=== PATIENT | female | born 1970 | race Caucasian/White ===

== ENCOUNTER 2020-03-10 15:55 | Outpatient (CLI) | payer OTHER, SELFPAY ==
--- NOTE | ~2020-03-10 | MM_ITS ---
EXAMINATION: MM screening liz BI w tam HISTORY: Screening mammogram TECHNIQUE: Craniocaudal and mediolateral oblique 3-D tomosynthesis images were obtained and synthetic 2-D images were generated. CAD analysis was submitted and interpreted. COMPARISON: 12/27/2018, 11/03/2016, 10/03/2013 bilateral digital screening mammogram examinations BREAST PARENCHYMAL COMPOSITION: The breasts are heterogeneously dense, which may obscure small masses . FINDINGS: 9 mm circumscribed mass is suggested posteriorly in the upper left breast on MLO view this appears stable since 12/27/2018 as well as 08/31/2011. There is no evidence of suspicious mass, calcification, or architectural distortion to suggest malign nicole in either breast. There has been no suspicious interval change. IMPRESSION: 1. No mammographic evidence of malignancy 2. Routine mammographic screening follow-up is recommended. BI-RADS Category 2: Benign finding(s). Reviewed, dictated and finalized at location A. FACTURING SALES REPRESENTATIVE
== END 2020-03-10 15:56 | disposition home or self-care (01) ==
LOC: ANHIMG 15:59
PROVIDERS: Visit Provider Obstetrics & Gynecology
DX: Z12.31 Encounter for screening mammogram for malignant neoplasm of breast (principal)
CPT/HCPCS: 77063; 77067

== ENCOUNTER 2021-09-12 12:26 | Emergency (ER) | payer BC, SELFPAY ==
[2021-09-12 12:40] VITALS: BP 131/84; PULSE 95; RESP 16; TEMP 36.7; O2SAT 100
--- NOTE | 2021-09-12 13:09 | ED.SKABFB ---
HPI - Skin/Abscess/Foreign Bdy General Chief complaint: Skin/Abscess/Foreign Body Stated complaint: swelling and inflammation in face Time Seen by Provider: 09/12/21 12:56 Source: patient Mode of arrival: ambulatory Limitations: no limitations History of Present Illness HPI narrative: Patient presents today complaining of swelling to the bilateral lower eyelids that started yesterday and states it has been worsening since onset. Patient was diagnosed 4 days ago with shingles on her forehead by her PCP and was started on valacyclovir and gabapentin. She is also been taking Tylenol for pain. She denies shortness of breath, difficulty swallowing, swelling in her mouth or tongue. Denies itching of the swelling of her eyelids. Related Data Home Medications Medication Instructions Recorded Confirmed ascorbate calcium (vitamin C) 500 500 mg PO DAILY 09/08/21 mg tablet multivitamin (Daily Multi-Vitamin) 1 tablet PO DAILY 09/08/21 tumeric 100 mg-miguel 150 mg-olive cap PO .QD 09/08/21 50 mg-oreg 150 mg-caprylate capsule Allergies Allergy/AdvReac Type Severity Reaction Status Date / Time adhesive Allergy Unknown BLISTERY Verified 09/12/21 12:47 RASH lanolin Allergy Unknown RASH Verified 09/12/21 12:47 latex Allergy Unknown Unknown Verified 09/12/21 12:47 Review of Systems Review of Systems: CONSTITUTIONAL: Denies body aches, fever, chills, or sweats. EYES: Denies visual changes, redness, or discharge.+ Swelling of the bilateral lower eyelids ENT: Denies rhinorrhea, congestion, sore throat, or otalgia. CARDIOVASCULAR: Denies chest pain, palpitations, or edema. RESPIRATORY: Denies cough or dyspnea. GASTROINTESTINAL: Denies abdominal pain, nausea, vomiting, or diarrhea. GENITOURINARY: Denies dysuria or hematuria. SKIN: Denies rash, itching, or wounds. MUSCULOSKELETAL: Denies back pain, joint pain, or myalgia. NEUROLOGIC: Denies headache, numbness, tingling, or weakness. PSYCH: Denies depression or anxiety. [facility] Family History Family History Father Hypertension Social History Social History Smoking status: Former smoker Second hand tobacco smoke exposure: No Smoking end date: 04/17/07 Alcohol intake: current Comments At time of signature, I have reviewed and agree with nursing past medical, surgical, social and family history unless otherwise noted. Please see nursing chart for further information. There is no relevant family history pertinent to the presenting complaint Exam Narrative: GENERAL: Well-appearing, well-nourished, and in no acute distress. HEAD: Normocephalic, atraumatic. EYES: EOMI. PERRL. No redness or drainage. Conjunctivae normal. Mild swelling of the bilateral lower eyelids that extends medially and downward midly. No pain, induration, or erythema noted. ENT: Mucous membranes pink and moist. Nares clear. No rhinorrhea. No swelling around the mouth, lips, tongue. NECK: Normal AROM. Supple. Right preauricular, postauricular, anterior and posterior cervical chain lymphadenopathy. CHEST: No respiratory distress. EXTREMITIES: Normal range of motion. No edema. SKIN: Warm, dry. Capillary refill normal. Normal skin turgor. Lesions to the right midline forehead without sign of bacterial infection NEURO: No focal deficits. Alert and oriented x3. Gait steady. PSYCH: Normal affect. No signs of depression or anxiety. Course Course Emergency Course: We will treat patient with some steroids and instruct her to take some Benadryl for possible allergic reaction, possibly to valacyclovir or gabapentin, but no way to confirm. She is nontoxic-appearing and is able to treat her symptoms at home. Level of Care: Express Care Visit Vital Signs Vital signs: Vital Signs Temperature 98.0 F 09/12/21 12:40 Pulse Rate 95 09/12/21 12:40 Respiratory Rate 16 09/12/21 12:40 Bloo
== END 2021-09-12 13:22 | disposition home or self-care (01) ==
PROVIDERS: Emergency Provider Nurse Practitioner; PCP Family Medicine
DX: R22.0 Localized swelling, mass and lump, head (principal); Z87.891 Personal history of nicotine dependence
CPT/HCPCS: 99213; G0463

== ENCOUNTER 2021-10-05 08:00 | Outpatient (CLI) | payer BC, SELFPAY ==
--- NOTE | ~2021-10-05 | MM_ITS ---
EXAMINATION: MM screening liz BI w tam HISTORY: Screening mammogram TECHNIQUE: Craniocaudal and mediolateral oblique 3-D tomosynthesis images were obtained and synthetic 2-D images were generated. CAD analysis was submitted and interpreted. COMPARISON: 03/06/2020, 12/27/2018, 11/03/2016 bilateral screening mammogram examinations BREAST PARENCHYMAL COMPOSITION: The breasts are heterogeneously dense, which may obscure small masses . FINDINGS: Stable approximately 1 cm circumscribed opacity is noted in the posterior upper left breast on MLO view There is no evidence of suspicious mass, calcification, or architectural distortion to s uggest malignancy in either breast. There has been no suspicious interval change. IMPRESSION: 1. No mammographic evidence of malignancy. 2. Recommend routine screening mammography in one year. BI-RADS Category 2: Benign finding(s). Reviewed, dictated and finalized at location A.
== END 2021-10-05 08:01 | disposition home or self-care (01) ==
PROVIDERS: PCP Family Medicine; Visit Provider Obstetrics & Gynecology
DX: Z12.31 Encounter for screening mammogram for malignant neoplasm of breast (principal)
CPT/HCPCS: 77063; 77067

== ENCOUNTER 2021-11-15 01:36 | Day surgery (SDC) | payer BC, SELFPAY ==
[2021-10-27 14:01] VITALS: BMI 23.8
--- NOTE | 2021-11-12 11:36 | SUR.PREOP ---
Spoke with patient and patient is taking Sutab for their prep.
[2021-11-15 07:19] VITALS: BMI 23.8
[2021-11-15 07:22] VITALS: BP 118/83; PULSE 74; RESP 16; TEMP 36.6; O2SAT 100
[2021-11-15] MEDS: LACTATED RINGERS 1,000 ML 150 ML IV CONT (07:28)
--- NOTE | 2021-11-15 08:15 | P.PNAN_ITS ---
Anes - Initial Pre Proc Eval Procedure: Operation Date: 11/15/21 08:30 Proposed Procedures p Screening Colonoscopy - Cody Bell MD Date/Time: 11/15/21 08:15 Surgeon: Cody Bell MD Pre Op Diagnosis: neoplasm screening Patient Data Age: 51 Gender: F Height: 1.65 m Weight: 64.8 kg Last Vital Signs Temp 97.8 F 11/15/21 07:22 Pulse 74 11/15/21 07:22 Resp 16 11/15/21 07:22 BP 118/83 11/15/21 07:22 Pulse Ox 100 11/15/21 07:22 O2 Del Method Room Air 11/15/21 07:22 Allergies Allergy/AdvReac Type Severity Reaction Status Date / Time adhesive Allergy Unknown BLISTERY Verified 10/27/21 13:59 RASH lanolin Allergy Unknown RASH Verified 10/27/21 13:59 latex Allergy Unknown Unknown Verified 10/27/21 13:59 gabapentin Allergy Swelling Verified 10/27/21 14:01 of the Eye valacyclovir Allergy Swelling Verified 10/27/21 14:01 of the Eye Home Medications Medication Instructions Recorded Confirmed Type multivitamin (Daily Multi-Vitamin 1 tablet PO DAILY 09/08/21 10/27/21 History tablet) tumeric 100 mg-miguel 150 mg-olive 1 cap PO .QD 09/08/21 10/27/21 History 50 mg-oreg 150 mg-caprylate capsule sodium sul 1.479 gram-potas ch See Rx Instructions PO PER PKG DIR 09/14/21 Rx 0.188 gram-magnes sul 0.225 gram #24 tabs tablet (Sutab) Patient hx anesthesia problems: none Family hx anesthesia problems: none Results Review: All pre-operative results and documents have been reviewed as part of the pre- operative evaluation. PMFSH Family History Family History Father Hypertension Social History Social History Smoking status: Former smoker Tobacco type: cigarettes Second hand tobacco smoke exposure: No Smoking end date: 04/17/07 Alcohol intake: current Drinks per week: 2 Substance use type: does not use Living arrangements: with family Spiritual care concerns: No Anes - Eval Final PreProcedure Day of Procedure 11/15/21 08:15 Patient weight: normal Heart: regular rate and rhythm Lungs: clear to auscultation Airway: Mallampati scale class II Neurological: alert and oriented Last oral intake: >/= 8 hours ASA classification: II Emergent: no Anesthetic plan: proceed Anesthesia type and monitoring: general GIVS and standard monitoring Results Review: All pre-operative results and documents have been reviewed as part of the pre- operative evaluation. Informed Consent: The patient's anesthetic plan and its attendant risks and benefits were discussed with the patient/family/POA. Questions were solicited and answers provided to the satisfaction of the patient/family/POA.
--- NOTE | 2021-11-15 08:24 | PM.HPGS ---
History of Present Illness History of Present Illness Consent: Risks, benefits, and alternatives have been discussed and questions answered. Patient agrees to proceed with procedure. Chief complaint: neoplasm screening Narrative: Ailyn Umanzor is a 51 year old female here for first screening colonoscopy Review of Systems Constitutional: Constitutional: Denies headache(s) and Denies weakness Eyes: Eyes: Denies blurry vision ENT: Reports Normal hearing present, Denies headache(s) and Denies neck pain Cardiovascular: Cardiovascular: Denies chest pain and Denies dyspnea Respiratory: Respiratory: Denies dyspnea Gastrointestinal: Gastrointestinal: Reports no additional gastrointestinal complaints Genitourinary: Genitourinary: Denies dysuria Musculoskeletal: Musculoskeletal: Denies neck pain Integumentary/Breasts: Skin/Breast: Denies dry skin Neurologic: Reports Normal hearing present, Denies headache(s) and Denies weakness Psychiatric: Psychiatric: Denies anxiety Endocrine: Endocrine: Denies change in body appearance Hematologic/Lymphatic: Hematologic/Lymphatic: Denies easy bleeding Allergic/Immunologic: Allergic/Immunologic: Denies urticaria [facility] Past Medical History Medical History (Updated 11/15/21 @ 08:24 by Cody Bell MD) Colon cancer screening Family History Family History Father Hypertension Social History Social History Smoking status: Former smoker Tobacco type: cigarettes Second hand tobacco smoke exposure: No Smoking end date: 04/17/07 Alcohol intake: current Drinks per week: 2 Substance use type: does not use Living arrangements: with family Spiritual care concerns: No Meds Home Medications and Allergies Home Medications Medication Instructions Recorded Confirmed Type multivitamin (Daily Multi-Vitamin 1 tablet PO DAILY 09/08/21 10/27/21 History tablet) tumeric 100 mg-miguel 150 mg-olive 1 cap PO .QD 09/08/21 10/27/21 History 50 mg-oreg 150 mg-caprylate capsule sodium sul 1.479 gram-potas ch See Rx Instructions PO PER PKG DIR 09/14/21 Rx 0.188 gram-magnes sul 0.225 gram #24 tabs tablet (Sutab) Allergies Allergy/AdvReac Type Severity Reaction Status Date / Time adhesive Allergy Unknown BLISTERY Verified 10/27/21 13:59 RASH lanolin Allergy Unknown RASH Verified 10/27/21 13:59 latex Allergy Unknown Unknown Verified 10/27/21 13:59 gabapentin Allergy Swelling Verified 10/27/21 14:01 of the Eye valacyclovir Allergy Swelling Verified 10/27/21 14:01 of the Eye Vital Signs Vital Signs - 24 hr 11/15/21 07:22 Temperature 97.8 F Pulse Rate 74 Respiratory Rate 16 Blood Pressure 118/83 Pulse Oximetry 100 Oxygen Delivery Room Air Exam Const: General: comfortable and no acute distress HENMT: General nose exam: Normal nares present Eyes: General: appearance normal, both eyes and all related structures Neck: Neck: no JVD Resp: Auscultation: clear to auscultation bilaterally Cardio: Rate: regular rate Rhythm: regular rhythm GI: Inspection: non-distended GI Palp: Yes Soft to palpation Skin: General skin exam: normal color Neuro: General: gait normal Speech: normal speech Extrem: General: normal to inspection Psych: Mental Status: mental status grossly normal Assessment and Plan Assessment and plan (1) Colon cancer screening: Code(s): Z12.11 - Encounter for screening for malignant neoplasm of colon Status: Acute Assessment and Plan: colonoscopy
[2021-11-15 08:40] VITALS: BP 104/65; PULSE 82; RESP 15; O2SAT 98
[2021-11-15 08:50] VITALS: BP 115/69; PULSE 79; RESP 18; O2SAT 100
[2021-11-15 08:57] VITALS: BP 121/82; PULSE 73; RESP 21; O2SAT 100
== END 2021-11-15 09:19 | disposition home or self-care (01) ==
PROVIDERS: PCP Family Medicine; Visit Provider Internal Medicine Gastroenterology
PROC: 0DJD8ZZ Inspection of Lower Intestinal Tract, Via Natural or Artificial Opening Endoscopic (ICD-10-PCS; CPT 45378; principal; 2021-11-15 08:30)
DX: Z12.11 Encounter for screening for malignant neoplasm of colon (principal); K64.8 Other hemorrhoids; Z87.891 Personal history of nicotine dependence
CPT/HCPCS: 45378; J2704; J7120

== ENCOUNTER 2023-03-24 10:38 | Outpatient (CLI) | payer BC, SELFPAY ==
--- NOTE | ~2023-03-24 | MMUS_ITS ---
EXAMINATION: MM diagnostic liz BI w tam, US breast BI limited HISTORY: Left breast and bilateral axillary swelling TECHNIQUE: Craniocaudal, mediolateral, and mediolateral oblique 3-D tomosynthesis images of the trungas ts were performed and synthetic 2-D images were generated. CAD analysis was submitted and interpreted . High resolution limited bilateral breast ultrasound was performed. COMPARISON: 10/05/2021, 03/10/2020, 12/27/2018 BREAST PARENCHYMAL COMPOSITION: There are scattered areas of fibroglandular density. FINDINGS: MAMMOGRAPHIC FINDINGS: No suspicious mass, calcification, or architectural distortion are identified in either breast to sug gest malignancy. There has been no suspicious interval change. There is partially imaged marked bilat eral axillary lymphadenopathy. ULTRASOUND: Bilateral axillary ultrasound demonstrates multiple pathologically enlarged lymph nodes of both axill ae. In addition, there is an enlarged lymph node at the 9:00 location in the far outer right breast. Subpectoral lymphadenopathy is noted on the left. IMPRESSION: 1. No mammographic evidence of malignancy in the breasts. Bridging screening mammography is recommend ed. 2. Marked bilateral axillary lymphadenopathy as well as subpectoral lymphadenopathy and left. Finding s could reflect lymphoma or other malignancy. Ultrasound guided lymph node biopsy is recommended. BI-RADS Category 2: Benign finding(s). Reviewed, dictated and finalized at location F. LE DRIVER IMPRESSION: 1. No mammographic evidence of malignancy in the breasts. Bridging screening ma mmography is recommended. 2. Marked bilateral axillary lymphadenopathy as well as subpectoral lymphadenop athy and left. Findings could reflect lymphoma or other malignancy. Ultrasound guided lymph node biopsy is recommended. BI-RADS Category 2: Benign finding(s).
== END 2023-03-24 10:39 | disposition home or self-care (01) ==
LOC: ANHIMG 10:39
PROVIDERS: PCP Family Medicine; Visit Provider Obstetrics & Gynecology
DX: N63.0 Unspecified lump in unspecified breast (principal)
CPT/HCPCS: 76642; 77062; 77066; G0279

== ENCOUNTER 2023-04-21 09:51 | Outpatient (CLI) | payer OTHER, SELFPAY ==
--- NOTE | ~2023-04-21 | US_ITS ---
EXAMINATION: US biopsy lymph node DATE: 04/21/2023 11:48 INDICATION: Localized enlarged left axillary lymph nodes TECHNIQUE: The procedure including the risks and benefits was discussed with the patient. Risks discu ssed included bleeding and infection. The patient understood the risks and agreed to proceed. The sk in overlying the left axilla was prepped and draped in usual sterile fashion. Anesthetic was adminis tered with 1% lidocaine subcutaneously. An 14 gauge core biopsy needle was advanced under continuous ultrasound observation to the lesion of interest. 6 core biopsy specimens were obtained, 4 placed i n RPMI media and 2 in formalin. The needle was removed and the entry site was cleaned and dressed. Post procedure ultrasound demonstrated no hemorrhage. FINDINGS: Ultrasound images demonstrate multiple enlarged left axillary lymph nodes. Subsequent image s demonstrate the biopsy needle advanced into the largest 5.7 x 1.4 x 1.9 cm left axillary lymph node . IMPRESSION: 1. Successful Ultrasound-guided biopsy of an enlarged 5.7 x 1.4 x 1.9 cm left axillary lymph node. Reviewed, dictated and finalized at location A. [place] STORE CLERK IMPRESSION: 1. Successful Ultrasound-guided biopsy of an enlarged 5.7 x 1.4 x 1.9 cm left a xillary lymph node.
== END 2023-04-21 09:52 | disposition home or self-care (01) ==
PROVIDERS: PCP Family Medicine; Visit Provider Obstetrics & Gynecology
DX: C91.10 Chronic lymphocytic leukemia of B-cell type not having achieved remission (principal)
CPT/HCPCS: 38505; 76942; 88305; 88341; 88342

== ENCOUNTER 2023-05-01 09:27 | Outpatient (CLI) | payer OTHER, SELFPAY ==
[2023-05-01 09:49] LABS: Basophils Absolute Auto 0.1 K/mm3 (0.0-0.1); Basophils Percent Auto 0.6 % (0.2-1.2); Eosinophils Absolute Auto 0.2 K/mm3 (0-0.3); Eosinophils Percent Auto 1.1 % (0-4.4); Hematocrit 40.6 % (37.0-47.0); Hemoglobin 13.4 g/dL (12.0-15.0); Immature Granulocyte Absolute 0.07 K/mm3 (0.00-0.031); Immature Granulocyte Percent A 0.4 % (0-0.5); Lymphocytes Absolute Auto 12.09 K/mm3 (0.9-3.2); Lymphocytes Percent Auto 70.2 % (18.3-44.2); Mean Corpuscular Hemoglobin 31.8 pg (26-34); Mean Corpuscular Volume 96.2 fl (80-100); Mean Platelet Volume 10.3 fl (7.4-10.4); Monocytes Absolute Auto 0.7 K/mm3 (0.1-0.6); Monocytes Percent Auto 4.1 % (2.6-8.5); Neutrophils Absolute Auto 4.1 K/mm3 (1.3-6.7); Neutrophils Percent Auto 23.6 % (45.5-73.1); Platelet Count Result 295 k/mm3 (150-375); Red Blood Count 4.22 M/mm3 (4.2-5.4); Red Cell Distribution Width 12.3 % (11.5-14.5); White Blood Count 17.2 K/mm3 (4.5-10.0)
[2023-05-01 09:55] LABS: Platelet Estimate Adequate (Adequate); Schistocytes None Seen (NORMAL)
[2023-05-01 09:56] LABS: Atypical Lymphocytes Present
[2023-05-01 11:01] LABS: Alanine Aminotransferase 19 U/L (6-35); Albumin Level 4.3 g/dL (3.5-5.1); Alkaline Phosphatase 88 U/L (38-126); Anion Gap 6 mmol/L (8-16); Aspartate Amino Transferase 27 U/L (14-36); Bilirubin,Total 0.4 mg/dL (0.2-1.3); Blood Urea Nitrogen 18 mg/dL (7-17); Calcium 9.2 mg/dL (8.4-10.2); Carbon Dioxide 30 mmol/L (22-30); Chloride 103 mmol/L (98-107); Estimated Glomerular Filt Rate > 60; Glucose 93 mg/dL (65-110); Lactate Dehydrogenase 237 U/L (120-246); Potassium 4.4 mmol/L (3.4-5.0); Sodium 139 mmol/L (137-145)
== END 2023-05-01 09:28 | disposition home or self-care (01) ==
LOC: ANHLAB 09:28
PROVIDERS: PCP Family Medicine; Visit Provider Internal Medicine Hematology & Oncology
DX: C91.10 Chronic lymphocytic leukemia of B-cell type not having achieved remission (principal)
CPT/HCPCS: 36415; 80053; 83615; 85025; 88184; 88365

== ENCOUNTER 2023-05-09 08:13 | Outpatient (CLI) | payer OTHER, SELFPAY ==
--- NOTE | ~2023-05-09 | CT_ITS ---
EXAMINATION: CT soft tiss nk chst ab pel w DATE: 05/09/2023 08:50 INDICATION: Lymphadenopathy. Chronic lymphocytic leukemia. TECHNIQUE: Computed tomography (CT) of the neck, chest, abdomen, and pelvis was performed without int ravenous contrast. Automated exposure control and iterative reconstruction technique were employed. T he dose-length product was 1182.24 mGy-cm. COMPARISON: None FINDINGS: NECK CT: There are mucous retention cysts in the maxillary sinuses. There is an increased number of normal-siz ed lymph nodes involving internal jugular, spinal accessory, and submandibular chains. There is a 1.7 x 1.1 cm left supraclavicular lymph node. There are nodules in the thyroid measuring up to 5 mm, lik jagdeep not clinically significant. There is mild cervical spondylosis. CHEST CT: There is mild emphysema. There is mild atelectasis bilaterally. There is mild scarring at the lung ap ices. There is no pleural effusion. There is bilateral axillary and subpectoral lymphadenopathy. For example, a left subpectoral node measures 2.4 x 2.0 cm . The heart size is normal. No pericardial eff usion. There is moderate thoracic spondylosis. ABDOMEN/PELVIS CT: There are cysts in the liver measuring up to 5 mm. The spleen, pancreas, adrenal glands, gallbladder, and kidneys are normal. There are no dilated loops of bowel. The appendix is normal. There is mesent elbert, aortocaval, left para-aortic, bilateral common iliac, and bilateral external iliac lymphadenopa thy. For example, a right external iliac node measures 2.9 x 1.7 cm. There is no ascites. There is mi ld lumbar spondylosis. IMPRESSION: 1. Lymphadenopathy in the neck, chest, abdomen, and pelvis, consistent with small lymphocytic lymphom a/chronic lymphocytic leukemia. Reviewed, dictated and finalized at location E. L MAKING SUPERVISOR IMPRESSION: 1. Lymphadenopathy in the neck, chest, abdomen, and pelvis, consistent with sma ll lymphocytic lymphoma/chronic lymphocytic leukemia.
== END 2023-05-09 08:14 | disposition home or self-care (01) ==
PROVIDERS: PCP Family Medicine; Visit Provider Internal Medicine Hematology & Oncology
DX: C91.10 Chronic lymphocytic leukemia of B-cell type not having achieved remission (principal)
CPT/HCPCS: 70491; 71260; 74177; Q9967

== ENCOUNTER 2023-06-13 07:40 | Outpatient (CLI) | payer OTHER, SELFPAY ==
--- NOTE | ~2023-06-13 | CT_ITS ---
EXAMINATION: CT chest abdomen pelvis w con DATE: 06/13/2023 08:11 INDICATION: Chronic lymphocytic leukemia, left-sided abdominal pain TECHNIQUE: Transaxial computed tomographic images of the chest, abdomen, and pelvis were obtained aft er the administration of 100 cc of Omnipaque 350 intravenous contrast. The dose-length product (DLP) was 442.47 mGy-cm. Automated exposure control and iterative reconstruction technique were employed. COMPARISON: 05/09/2023 FINDINGS: CHEST CT: There has been interval worsening of bilateral subpectoral and axillary lymphadenopathy. For instance , many subpectoral lymph nodes which were previously subcentimeter in short axis now measure greater than 1 cm. There is also enlargement of an intramammary lymph node in the left breast. The heart size is normal. There is mild emphysema. Mild scarring is noted in the lung apices. No pleural effusion o r pneumothorax. There is mild dependent atelectasis. ABDOMEN/PELVIS CT: There are multiple cysts of the liver which measure up to 5 mm. The spleen, pancreas, gallbladder, an d adrenal glands are normal. The kidneys are unremarkable. There is interval worsening of retroperito jewell, mesenteric, bilateral common iliac, and bilateral external iliac lymphadenopathy. For instance a 1.7 cm lymph node near the aortic bifurcation previously measured 1.4 cm. No free intraperitoneal g as or evidence of bowel obstruction. IMPRESSION: 1. Interval worsening of lymphadenopathy of the chest, abdomen, and pelvis, consistent with history o f chronic lymphocytic leukemia. Reviewed, dictated and finalized at location L. ELING REPRESENTATIVE IMPRESSION: 1. Interval worsening of lymphadenopathy of the chest, abdomen, and pelvis, con sistent with history of chronic lymphocytic leukemia.
== END 2023-06-13 07:41 | disposition home or self-care (01) ==
PROVIDERS: PCP Family Medicine; Visit Provider Internal Medicine Hematology & Oncology
DX: C91.10 Chronic lymphocytic leukemia of B-cell type not having achieved remission (principal)
CPT/HCPCS: 71260; 74177; Q9967

== ENCOUNTER 2023-06-14 08:43 | Outpatient (CLI) | payer OTHER, SELFPAY ==
[2023-06-14 08:54] LABS: Basophils Absolute Auto 0.1 K/mm3 (0.0-0.1); Basophils Percent Auto 0.4 % (0.2-1.2); Eosinophils Absolute Auto 0.1 K/mm3 (0-0.3); Eosinophils Percent Auto 0.8 % (0-4.4); Hemoglobin 12.9 g/dL (12.0-15.0); Immature Granulocyte Absolute 0.04 K/mm3 (0.00-0.031); Immature Granulocyte Percent A 0.3 % (0-0.5); Lymphocytes Absolute Auto 10.21 K/mm3 (0.9-3.2); Lymphocytes Percent Auto 70.4 % (18.3-44.2); Mean Corpuscular HGB Conc 32.3 g/dl (32-36); Mean Corpuscular Hemoglobin 31.5 pg (26-34); Mean Corpuscular Volume 97.8 fl (80-100); Mean Platelet Volume 9.9 fl (7.4-10.4); Monocytes Absolute Auto 1.7 K/mm3 (0.1-0.6); Monocytes Percent Auto 11.8 % (2.6-8.5); Neutrophils Absolute Auto 2.4 K/mm3 (1.3-6.7); Neutrophils Percent Auto 16.3 % (45.5-73.1); Platelet Count Result 210 k/mm3 (150-375); Red Blood Count 4.09 M/mm3 (4.2-5.4); Red Cell Distribution Width 12.1 % (11.5-14.5); White Blood Count 14.5 K/mm3 (4.5-10.0)
[2023-06-14 09:00] LABS: Atypical Lymphocytes Present; Platelet Estimate Adequate (Adequate); Schistocytes None Seen (NORMAL)
[2023-06-14 09:02] LABS: Blood Urea Nitrogen 18 mg/dL (8-26); Carbon Dioxide 28 mmol/L (22-30); Chloride 103 mmol/L (98-109); Estimated Glomerular Filt Rate > 60; Glucose 92 mg/dL (70-105); Ionized Calcium (POC) 1.25 mmol/L (1.11-1.31); Potassium 3.6 mmol/L (3.5-4.9); Sodium 142 mmol/L (138-146)
[2023-06-14 10:14] LABS: Alanine Aminotransferase 18 U/L (6-35); Albumin Level 4.5 g/dL (3.5-5.1); Alkaline Phosphatase 71 U/L (38-126); Anion Gap 11 mmol/L (8-16); Aspartate Amino Transferase 29 U/L (14-36); Bilirubin,Total 0.5 mg/dL (0.2-1.3); Blood Urea Nitrogen 19 mg/dL (7-17); Calcium 9.4 mg/dL (8.4-10.2); Carbon Dioxide 25 mmol/L (22-30); Chloride 105 mmol/L (98-107); Estimated Glomerular Filt Rate > 60; Glucose 95 mg/dL (65-110); Lactate Dehydrogenase 291 U/L (120-246); Potassium 3.6 mmol/L (3.4-5.0); Sodium 141 mmol/L (137-145)
== END 2023-06-14 08:44 | disposition home or self-care (01) ==
LOC: ANHLAB 08:45
PROVIDERS: PCP Family Medicine; Visit Provider Internal Medicine Hematology & Oncology
DX: C91.10 Chronic lymphocytic leukemia of B-cell type not having achieved remission (principal)
CPT/HCPCS: 36415; 80047; 80053; 83615; 85025; 88365

== ENCOUNTER 2023-09-08 02:34 | Day surgery (SDC) | payer OTHER, SELFPAY ==
[2023-08-29 09:48] VITALS: BMI 22.8
[2023-09-08 06:29] VITALS: BP 109/58; PULSE 67; RESP 16; TEMP 36.3; O2SAT 98
[2023-09-08] MEDS: LACTATED RINGERS 1,000 ML 150 ML IV CONT (06:42)
--- NOTE | 2023-09-08 07:16 | WPDANESEPPF ---
Anes - Initial Pre Proc Eval Procedure: Operation Date: 09/08/23 07:30 Proposed Procedures p Esophagogastroduodenoscopy - Coyd Bell MD Date/Time: 09/08/23 07:16 Surgeon: oCdy Bell MD Pre Op Diagnosis: Generalized abdominal pain Patient Data Age: 53 Gender: F Height: 1.65 m Weight: 62.3 kg Last Vital Signs Temp 36.3 C L 09/08/23 06:29 Pulse 67 09/08/23 06:29 Resp 16 09/08/23 06:29 BP 109/58 L 09/08/23 06:29 Pulse Ox 98 09/08/23 06:29 O2 Del Method Room Air 09/08/23 06:29 Allergies Allergy/AdvReac Type Severity Reaction Status Date / Time adhesive Allergy Intermediate BLISTERY Verified 09/08/23 06:26 RASH lanolin Allergy Unknown RASH Verified 09/08/23 06:26 latex Allergy Unknown Unknown Verified 09/08/23 06:26 gabapentin Allergy Swelling Verified 09/08/23 06:26 of the Eye valacyclovir Allergy Swelling Verified 09/08/23 06:26 of the Eye Home Medications Medication Instructions Recorded Confirmed Type ergocalciferol (vitamin D2) 1,250 50,000 unit PO WEEKLY 08/29/23 09/08/23 History mcg (50,000 unit) capsule famotidine 20 mg tablet (Pepcid AC) 20 mg PO BID 08/29/23 09/08/23 History Patient hx anesthesia problems: none Family hx anesthesia problems: none Results Review: All pre-operative results and documents have been reviewed as part of the pre-operative evaluation. 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 Family History Family History Father Hypertension Social History Social History Social History: Caffeine-moderate Smoking packs per day: 1 Smoking cigarettes per day: 20.0 Years smoked: 15 Smoking pack-years: 15.00 Smoking status: Former smoker Tobacco type: cigarettes Second hand tobacco smoke exposure: No Smoking end date: 04/17/07 Alcohol intake: current Drinks per week: 2 Substance use: never Substance use type: does not use Do You Feel Safe in your Home?: Yes Lack of Transportation: No Lack of Food: Never True Current Housing: I Have Housing Concerned About Future Housing: No Difficulty Paying Gas/Electric Bills: No Difficulty Paying for Meds: No Currently Unemployed: No Living arrangements: with family Occupation/Education: occupation Gender identity (if verbalized by the patient): Female Sexual Orientation (if Verbalized by the Patient): Straight or Heterosexual Spiritual care concerns: No Anes - Eval Final PreProcedure Day of Procedure 09/08/23 07:16 Patient weight: normal Heart: regular rate and rhythm Lungs: clear to auscultation and normal air movement Airway: Mallampati scale class II Neurological: alert and oriented Last oral intake: >/= 8 hours ASA classification: III Emergent: no Anesthetic plan: proceed Anesthesia type and monitoring: general GIVS and standard monitoring Results Review: All pre-operative results and documents have been reviewed as part of the pre-operative evaluation. Informed Consent: The patient's anesthetic plan and its attendant risks and benefits were discussed with the patient/family/POA. Questions were solicited and answers provided to the satisfaction of the patient/family/POA.
--- NOTE | 2023-09-08 07:33 | PM.HPGS ---
History of Present Illness History of Present Illness Consent: Risks, benefits, and alternatives have been discussed and questions answered. Patient agrees to proceed with procedure. Chief complaint: Generalized abdominal pain Narrative: Ailyn Umanzor is a 53 year old female with intermittent luq pain and indigestion since May, using pepcid, never had EGD. 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 Family History Family History Father Hypertension Social History Social History Social History: Caffeine-moderate Smoking packs per day: 1 Smoking cigarettes per day: 20.0 Years smoked: 15 Smoking pack-years: 15.00 Smoking status: Former smoker Tobacco type: cigarettes Second hand tobacco smoke exposure: No Smoking end date: 04/17/07 Alcohol intake: current Drinks per week: 2 Substance use: never Substance use type: does not use Do You Feel Safe in your Home?: Yes Lack of Transportation: No Lack of Food: Never True Current Housing: I Have Housing Concerned About Future Housing: No Difficulty Paying Gas/Electric Bills: No Difficulty Paying for Meds: No Currently Unemployed: No Living arrangements: with family Occupation/Education: occupation Gender identity (if verbalized by the patient): Female Sexual Orientation (if Verbalized by the Patient): Straight or Heterosexual Spiritual care concerns: No Meds Home Medications and Allergies Home Medications Medication Instructions Recorded Confirmed Type ergocalciferol (vitamin D2) 1,250 50,000 unit PO WEEKLY 08/29/23 09/08/23 History mcg (50,000 unit) capsule famotidine 20 mg tablet (Pepcid AC) 20 mg PO BID 08/29/23 09/08/23 History Allergies Allergy/AdvReac Type Severity Reaction Status Date / Time adhesive Allergy Intermediate BLISTERY Verified 09/08/23 06:26 RASH lanolin Allergy Unknown RASH Verified 09/08/23 06:26 latex Allergy Unknown Unknown Verified 09/08/23 06:26 gabapentin Allergy Swelling Verified 09/08/23 06:26 of the Eye valacyclovir Allergy Swelling Verified 09/08/23 06:26 of the Eye Vital Signs Vital Signs - 24 hr 09/08/23 06:29 Temperature 97.3 F L Pulse Rate 67 Respiratory Rate 16 Blood Pressure 109/58 L Pulse Oximetry 98 Oxygen Delivery Room Air Exam Const: General: comfortable and no acute distress HENMT: Face/Nose/Sinus: Normal nares present Eyes: General: appearance normal, both eyes and all related structures Neck: Neck: no JVD Resp: Auscultation: clear to auscultation bilaterally Cardio: Rate: regular rate Rhythm: regular rhythm GI: Inspection: non-distended GI Palp: Yes Soft to palpation Skin: General skin exam: normal color Neuro: General: gait normal Speech: normal speech Extrem: General: normal to inspection Psych: Mental Status: mental status grossly normal Assessment and Plan Assessment and plan (1) Chronic LUQ pain: Code(s): R10.12 - Left upper quadrant pain; G89.29 - Other chronic pain Status: Acute Assessment and Plan: egd with bx (2) Chronic lymphocytic leukemia: Code(s): C91.10 - Chronic lymphocytic leukemia of B-cell type not having achieved remission Status: Acute
[2023-09-08 07:46] VITALS: BP 101/59; PULSE 69; RESP 17; O2SAT 100
[2023-09-08 07:56] VITALS: BP 97/60; PULSE 73; RESP 15; O2SAT 100
[2023-09-08 08:06] VITALS: BP 114/70; PULSE 63; RESP 20; O2SAT 100
== END 2023-09-08 08:30 | disposition home or self-care (01) ==
PROVIDERS: PCP Family Medicine; Visit Provider Internal Medicine Gastroenterology
PROC: 0DJ08ZZ Inspection of Upper Intestinal Tract, Via Natural or Artificial Opening Endoscopic (ICD-10-PCS; CPT 43235; principal; 2023-09-08 07:30)
DX: R10.12 Left upper quadrant pain (principal); C91.10 Chronic lymphocytic leukemia of B-cell type not having achieved remission; Z85.72 Personal history of non-Hodgkin lymphomas; Z87.891 Personal history of nicotine dependence
CPT/HCPCS: 43239; 88305; J2704; J7120

== ENCOUNTER 2023-11-30 13:18 | Emergency (ER) | payer OTHER, SELFPAY ==
--- NOTE | ~2023-11-30 | XR_ITS ---
EXAMINATION: XR toe 5th LT min 2V DATE: 11/30/2023 13:50 INDICATION: Left fifth toe injury and pain. TECHNIQUE: 4 views of left fifth toe were obtained. COMPARISON: None. FINDINGS: Bone alignment is normal. No fracture. There is ankylosis of fifth distal interphalangeal j oint. 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 IMPRESSION: 1. No fracture. Reviewed, dictated and finalized at location A. IMPRESSION: 1. No fracture.
[2023-11-30 13:32] VITALS: BP 141/78; PULSE 97; RESP 16; TEMP 36.5; O2SAT 100
--- NOTE | 2023-11-30 13:35 | ED.GENADULT ---
HPI - General Adult General Chief complaint: Extremity Injury, Lower Stated complaint: L TOE INJURY Time Seen by Provider: 11/30/23 13:35 Source: patient, family, RN notes reviewed and old records reviewed Mode of arrival: ambulatory (placed in wheelchair) Limitations: no limitations History of Present Illness HPI narrative: 53 year old female who presents to clinic with significant other with complaints of catching her left 5th toe ottoman last night and initially thought that she had just torn her nail. Patient reports increased pain to her left 5th toe and difficulty walking today.She reports that she noted that she has bruising and increased swelling to the lateral aspect of her left 5th toe. Patient reports that she has used ice and has take Tylenol for her discomfort. MD complaint: left 5th toe Onset (ago): hour(s) (last evening) Severity scale (1-10): 6 Pain Consistency: intermittent Exacerbating factors: movement and other (ambulation) Treatments prior to arrival: other (Tylenol) Related Data Home Medications Medication Instructions Recorded Confirmed ergocalciferol (vitamin D2) 1,250 50,000 unit PO WEEKLY 08/29/23 11/30/23 mcg (50,000 unit) capsule famotidine 20 mg tablet (Pepcid AC) 20 mg PO BID 08/29/23 11/30/23 Allergies Allergy/AdvReac Type Severity Reaction Status Date / Time adhesive Allergy Intermediate BLISTERY Verified 11/30/23 13:28 RASH lanolin Allergy Unknown RASH Verified 11/30/23 13:28 latex Allergy Unknown Unknown Verified 11/30/23 13:28 gabapentin Allergy Swelling Verified 11/30/23 13:28 of the Eye valacyclovir Allergy Swelling Verified 11/30/23 13:28 of the Eye Review of Systems Review of Systems: CONSTITUTIONAL: Denies fever, chills, or sweats. EYES: Denies visual changes, redness, or discharge. ENT: Denies rhinorrhea, congestion, sore throat, or otalgia. CARDIOVASCULAR: Denies chest pain, palpitations, or edema. RESPIRATORY: Denies cough or dyspnea. GASTROINTESTINAL: Denies abdominal pain, nausea, vomiting, or diarrhea. GENITOURINARY: Denies dysuria or hematuria. SKIN: Denies rash or itching. MUSCULOSKELETAL: Denies back pain,positive for pain to her left 5th toe with swelling and bruising or myalgia. NEUROLOGIC: Denies headache, numbness, or weakness. PSYCHIATRIC: Positive for history of anxiety or depression. 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 History of sinus problem Shingles UTI (urinary tract infection) Family History Family History Father Hypertension Social History Social History Social History: Caffeine-moderate Smoking packs per day: 1 Smoking cigarettes per day: 20.0 Years smoked: 15 Smoking pack-years: 15.00 Smoking status: Former smoker Tobacco type: cigarettes Second hand tobacco smoke exposure: No Smoking end date: 04/17/07 Alcohol intake: current Drinks per week: 2 Substance use: never Substance use type: does not use Do You Feel Safe in your Home?: Yes Lack of Transportation: No Lack of Food: Never True Current Housing: I Have Housing Concerned About Future Housing: No Difficulty Paying Gas/Electric Bills: No Difficulty Paying for Meds: No Currently Unemployed: No Living arrangements: with family Occupation/Education: occupation Gender identity (if verbalized by the patient): Female Sexual Orientation (if Verbalized by the Patient): Straight or Heterosexual Spiritual care concerns: No Comments At time of signature, agree with nursing past medical, surgical, social and family history. There is no relevant family history pert
== END 2023-11-30 14:13 | disposition home or self-care (01) ==
PROVIDERS: Emergency Provider Registered Nurse; PCP Family Medicine
DX: S90.122A Contusion of left lesser toe(s) without damage to nail, initial encounter (principal); W22.03XA Walked into furniture, initial encounter; Z87.891 Personal history of nicotine dependence
CPT/HCPCS: 73660; 99213; G0463

== ENCOUNTER 2024-03-28 10:17 | Emergency (ER) | payer OTHER, SELFPAY ==
[2024-03-28 10:27] VITALS: BP 132/83; PULSE 98; RESP 16; TEMP 36.7; O2SAT 99
[2024-03-28 10:38] LABS: EDUAAPPEAR Cloudy; EDUABILI Negative (Negative); EDUABLOOD 3+ (Negative); EDUACOLOR1 Yellow; EDUAGLUCOSE Negative (Negative); EDUAKETONE Negative (Negative); EDUALEUKO 1+ (Negative); EDUANITRATE Negative (Negative); EDUAPROTEIN Negative (Negative); EDUAUROBILI 0.2
--- NOTE | 2024-03-28 10:41 | ED.FEMALEGU ---
HPI - Female Genitourinary General Chief complaint: Urogenital-Female Stated complaint: Uti Symptoms/Blood In Urine Time Seen by Provider: 03/28/24 10:41 Source: patient Mode of arrival: ambulatory Limitations: no limitations History of Present Illness HPI Narrative: 53-year-old female with history of lymphoma presents with complaint of urinary frequency, urgency, dysuria for 4 days. Afebrile. No abdominal or back pain. Also reports intermittent sore throat for the past 2 weeks. Has had some postnasal drainage which states could be the cause of sore throat. Afebrile. Feeling well. All systems reviewed and negative except as noted above. Related Data Home Medications ?Medication ?Instructions ?Recorded ?Confirmed ?Last Taken ?Type ergocalciferol (vitamin D2) 1,250 50,000 unit PO WEEKLY 08/29/23 11/30/23 09/01/23 History mcg (50,000 unit) capsule famotidine 20 mg tablet (Pepcid AC) 20 mg PO BID 08/29/23 11/30/23 09/07/23 History Allergies Allergy/AdvReac Type Severity Reaction Status Date / Time adhesive Allergy Intermediate BLISTERY Verified 03/28/24 10:30 RASH lanolin Allergy Unknown RASH Verified 03/28/24 10:30 latex Allergy Unknown Unknown Verified 03/28/24 10:30 gabapentin Allergy Swelling Verified 03/28/24 10:30 of the Eye valacyclovir Allergy Swelling Verified 03/28/24 10:30 of the Eye Review of Systems Review of Systems: CONSTITUTIONAL: Denies fever, chills, or sweats. EYES: Denies visual changes, redness, or discharge. ENT: Denies rhinorrhea, congestion. Reports sore throat. Denies otalgia. CARDIOVASCULAR: Denies chest pain, palpitations, or edema. RESPIRATORY: Denies cough or dyspnea. GASTROINTESTINAL: Denies abdominal pain, nausea, vomiting, or diarrhea. GENITOURINARY: Reports dysuria, frequency, urgency. Denies hematuria. SKIN: Denies rash or itching. MUSCULOSKELETAL: Denies back pain, joint pain, or myalgia. NEUROLOGIC: Denies headache, numbness, or weakness. PSYCHIATRIC: Denies anxiety or depression. All other systems reviewed are negative, except as documented in HPI. 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 Shingles Family History Family History Father Hypertension Social History Social History Social History: Caffeine-moderate Smoking packs per day: 1 Smoking cigarettes per day: 20.0 Years smoked: 15 Smoking pack-years: 15.00 Smoking status: Former smoker Tobacco type: cigarettes Second hand tobacco smoke exposure: No Smoking end date: 04/17/07 Alcohol intake: current Drinks per week: 2 Substance use: never Substance use type: does not use Do You Feel Safe in your Home?: Yes Lack of Transportation: No Lack of Food: Never True Current Housing: I Have Housing Concerned About Future Housing: No Difficulty Paying Gas/Electric Bills: No Difficulty Paying for Meds: No Currently Unemployed: No Living arrangements: with family Occupation/Education: occupation Gender identity (if verbalized by the patient): Female Sexual Orientation (if Verbalized by the Patient): Straight or Heterosexual Spiritual care concerns: No Comments At time of signature, agree with nursing past medical, surgical, social and family history. There is no relevant family history pertinent to the presenting complaint. Exam Narrative: GENERAL: This is a well-nourished, well-developed patient, in no apparent distress. HEAD: normocephalic, atraumatic. EYES: PERRL. Sclera clear/white. Vision is grossly intact. EARS: External ears normal, auditory canals clear and without drainage, TMs normal without perforation. Hearing grossly intact. NOSE: External nose normal with no obvious nasal discharge, nares without redness, no rhinorrhea. THROAT: Mucous membranes moist, mild erythema with postnasal drainage NECK: Neck supple, non-tender without lymphadenopathy, masses or thyromegaly. CARDIOVASCULAR: Regular rate and rhythm without murmurs, gallops, or rubs. RESPIRATORY: Clear to auscultation. Breath sounds equal bilaterally. No wheezes, rales, or rhonchi. SKIN: warm, Dry, intact with no suspicious lesions or rash, good texture and turgor. NEURO: awake, alert, and oriented to person, place and time. There were no obvious focal neurologic abnormalities. EXTREMITIES: No joint tenderness, effusion, or edema noted. Course Course Level of Care: Express Care Visit Vital Signs Vital signs: Vital Signs Temperature 36.7 C 03/28/24 10:27 Pulse Rate 98 03/28/24 10:27 Respiratory Rate 16 03/28/24 10:27 Blood Pressure 132/83 03/28/24 10:27 Pulse Oximetry 99 03/28/24 10:27 Temperature 36.7 C 03/28/24 10:27 Pulse Rate 98 03/28/24 10:27 Respiratory Rate 16 03/28/24 10:27 Blood Pressure 132/83 03/28/24 10:27 Pulse Oximetry 99 03/28/24 10:27 Reviewed MDM - Female Genitourinary MDM Narrative Medical decision making narrative: Patient is aware of diagnosis, understands and agrees to treatment plan. Anticipatory guidance given. Patient agrees to follow-up as directed and is aware of reasons to seek care at the emergency department. Portions of this record may have been created with voice recognition software Negative rapid strep. Recommend patient taking [id number] medication to treat postnasal drainage. Urinalysis positive for leukocytes or blood. Prescribe Augmentin for urinary tract infection. Patient well-appearing, nontoxic. Differential Diagnosis Differential diagnosis: Likely urinary tract infection Lab Data Labs: Lab Results 03/28/24 03/28/24 Range/Units 10:36 11:02 POC Urine Color Yellow POC Urine Clarity Cloudy POC Urine pH 6.0 POC Ur Specif [place] 1.010 POC Urine Protein Negative (Negative) POC Ur Glucose (UA) Negative (Negative) POC Urine Ketones Negative (Negative) POC Urine Blood 3+ (Negative) POC Urine Nitrite Negative (Negative) POC Urine Bilirubin Negative (Negative) POC Urine Urobilinogen 0.2 POC U Leukocyte Esteras 1+ (Negative) POC Grp A Strep Screen Negative (Negative) Discharge Plan Discharge Clinical Impression: Urinary tract infection, Post-nasal drainage, Acute sore throat Patient Disposition: Home, Self-Care Condition: Stable Instructions: Antibiotic Form, Urinary Tract Infection in Women (ED) Additional Instructions: Your strep test was negative today. Taking [id number] antihistamine such as Claritin or Zyrtec to treat postnasal drainage. Take antibiotic as prescribed to treat urinary tract infection. Take Tylenol or ibuprofen every 6-8 hours as needed for pain and fever. Drink at least 64 oz of water a day. Follow-up with your primary care physician if symptoms are not improving. Patient Language: Brazilian Prescriptions: New amoxicillin-pot clavulanate [Augmentin] 500-125 mg tablet 1 tablet PO BID 5 Days Qty: 10 0RF No Action Xifaxan 550 mg tablet 550 mg PO TID 14 Days Qty: 42 2RF famotidine [Pepcid AC] 20 mg Tablet 20 mg PO BID ergocalciferol (vitamin D2) 1,250 mcg (50,000 unit) capsule 50,000 unit PO WEEKLY Follow-up/Referrals: Gayle Reaves DO [Primary Care Provider] - Time of Disposition: 11:10
[2024-03-28 11:04] LABS: EDSTREPNEGPOS1 Negative (Negative)
== END 2024-03-28 11:13 | disposition home or self-care (01) ==
PROVIDERS: Emergency Provider Nurse Practitioner Family; PCP Family Medicine
DX: N39.0 Urinary tract infection, site not specified (principal); B96.20 Unspecified Escherichia coli [E. coli] as the cause of diseases classified elsewhere; R09.82 Postnasal drip; J02.9 Acute pharyngitis, unspecified; Z87.891 Personal history of nicotine dependence; Z85.6 Personal history of leukemia; Z85.72 Personal history of non-Hodgkin lymphomas
CPT/HCPCS: 81003; 87077; 87081; 87086; 87186; 87880; 99213; G0463

== ENCOUNTER 2024-04-27 09:44 | Outpatient (CLI) | payer OTHER, SELFPAY ==
--- NOTE | ~2024-04-27 | MM_ITS ---
EXAMINATION: MM screening liz BI w tam HISTORY: Screening mammogram TECHNIQUE: Craniocaudal and mediolateral oblique 3-D tomosynthesis images were obtained and synthetic 2-D images were generated. CAD analysis was submitted and interpreted. COMPARISON: 03/24/2023, 10/05/2021, 03/10/2020 BREAST PARENCHYMAL COMPOSITION:Dense: The breasts are extremely dense, which lowers the sensitivity o f mammography. FINDINGS: No suspicious mass, calcification, or architectural distortion are identified in either trung ast to suggest malignancy. There has been no suspicious interval change. IMPRESSION: No mammographic evidence of malignancy. Recommend routine screening mammography in one year. BI-RADS Category 1: Negative Reviewed, dictated and finalized at location . [facility]
== END 2024-04-27 09:45 | disposition home or self-care (01) ==
LOC: ANHIMG 09:54
PROVIDERS: PCP Family Medicine; Visit Provider Obstetrics & Gynecology
DX: Z12.31 Encounter for screening mammogram for malignant neoplasm of breast (principal)
CPT/HCPCS: 77063; 77067